=== PATIENT | female | born 1990 | race Caucasian/White ===

== ENCOUNTER 2024-09-14 23:40 | Emergency (ER) | payer MEDICAID ==
[~2024-09-14] VITALS: Ht 165.1 cm; Wt 59.1 kg
[2024-09-14 23:45] VITALS: BP 106/64; PULSE 81; RESP 12; TEMP 97.9; O2SAT 100
[2024-09-15] MEDS ORDERED: SULF-261 PO (00:28)
[2024-09-15] MEDS ORDERED: CEPH-558 PO (00:28)
[2024-09-15] MEDS: SULFAMETHOX/TRIMETH DS 800-160 MG/TABLET PO ONE (00:56)
[2024-09-15] MEDS: CEPHALEXIN MONOHYDRATE 500 MG CAPSULE PO ONE (00:56)
== END 2024-09-15 01:00 | disposition home or self-care (01) ==
LOC: EMS 23:40 → EDUNIT# 23:40 → EMS 09-15 01:00
DX: L03.811 Cellulitis of head [any part, except face] (principal); F12.90 Cannabis use, unspecified, uncomplicated; F17.210 Nicotine dependence, cigarettes, uncomplicated
CPT/HCPCS: 99283